=== PATIENT | female | born 1940 | race African-American/Black ===

== ENCOUNTER 2017-05-08 12:05 | Outpatient (CLI) | payer MEDICARE ==
--- NOTE | 2017-05-08 15:16 | Cat Scan Report ---
CT scan of abdomen and pelvis without IV contrast: History: Abdominal pain. Findings: Normal lung bases. No pleural or pericardial effusion. Normal liver spleen pancreas and gallbladder. Normal adrenals and kidney parenchyma and bladder. No free intraperitoneal fluid. No evidence of adenopathy. Normal aorta. Normal appendix. No evidence of diverticulitis. Gaseous colon with large volume stool in colon. No bowel distention. Impression: Gaseous colon large volume of stool in colon.
--- NOTE | 2017-05-08 15:32 | Cat Scan Report ---
CT scan of chest without IV contrast: History: Abnormal chest x-ray. Findings: No endobronchial or mediastinal mass. No mediastinal, or axillary adenopathy. No pleural pericardial effusion. Normal lung parenchyma. No discrete nodularity or consolidation or mass. Impression: No mediastinal mass. No acute changes.
== END 2017-05-08 12:06 | disposition home or self-care (01) ==
LOC: CT 12:05
PROVIDERS: ATTEND Internal Medicine
DX: R91.8 Other nonspecific abnormal finding of lung field (principal); R10.9 Unspecified abdominal pain; R06.02 Shortness of breath
CPT/HCPCS: 71250; 74176

== ENCOUNTER 2018-02-02 11:15 | Outpatient (CLI) | payer MEDICARE ==
--- NOTE | 2018-02-02 11:55 | XRay Report ---
ROUTINE CHEST, TWO VIEWS: HISTORY: Cough. The trachea, heart, mediastinal contour, lung joseph and bony thorax are unremarkable. IMPRESSION: Unremarkable chest x-ray.
== END 2018-02-02 11:16 | disposition home or self-care (01) ==
LOC: XRAY 11:15
PROVIDERS: ATTEND Internal Medicine
DX: R05 Cough (principal); R06.02 Shortness of breath
CPT/HCPCS: 71046